=== PATIENT | male | born 1980 | race Caucasian/White ===

== ENCOUNTER 2025-03-28 08:00 | Emergency (ER) | payer OTHER, SELFPAY ==
[2025-03-28] VITALS (9 sets, daily range): BP systolic 162–217; BP diastolic 108–150; PULSE 83–108; RESP 16–18; TEMP 36.7–36.9; O2SAT 96–99; BMI 40.4
--- NOTE | 2025-03-28 08:33 | XR_ITS ---
Examination: AP chest single view TECHNIQUE: AP portable upright chest single view Date and time: March 28, 2025 0902 hours INDICATIONS: Shortness of breath today FINDINGS: No significant cardiac enlargement No pneumonia or pulmonary edema. Intact osseous structures IMPRESSION: No active disease
[2025-03-28 09:03] LABS: Basophils % (Auto) 1 % (0-2.5); Eosinophils # (Auto) 0.2 Thou/mm3 (0.0-0.5); Eosinophils % (Auto) 4 % (0-10); Hematocrit 48.1 % (41.0-53.0); Hemoglobin 17.3 g/dL (13.5-16.0); Immature Granulocytes % (Auto) 0 % (0-0); Immature Granulocytes Auto 0.01 Thou/mm3 (0.00-0.00); Lymphocytes # (Auto) 1.7 Thou/mm3 (1.0-4.8); Lymphocytes % (Auto) 25 % (10-50); Mean Corpuscular Hemoglobin 30.2 pg (25.0-35.0); Mean Corpuscular Volume 84 fL (80-100); Monocytes # (Auto) 0.5 Thou/mm3 (0.0-0.8); Monocytes % (Auto) 7 % (0-12); Neutrophils # (Auto) 4.1 Thou/mm3 (1.8-7.7); Neutrophils % (Auto) 63 % (37-80); Nucleated Red Blood Cell % 0 /100 WBC (0); Platelet Count 313 Thou/mm3 (140-440); RDW Standard Deviation 38.1 fL (35.1-43.9); Red Blood Count 5.72 Miln/mm3 (4.50-5.90); White Blood Count 6.5 Thou/mm3 (3.8-10.6)
--- NOTE | 2025-03-28 09:03 | EDNOTE_ITS ---
<Statement entered by Madeline Rodriguez MD - 03/29/25 06:13> I, Madeline Rodriguez MD, have reviewed the history, exam, and assessment of the patient. I have evaluated the patient independently and agree with the plan of care documented by [ ]. All diagnostic studies were reviewed and discussed. I confirm the diagnosis as documented by the Resident. I was present during the Medical Decision Making for this patient. The patient's plan of care was created between myself and the Resident and consistent with our discussion of the patient's case. ED General RME/HPI General Chief complaint: Recheck/Abnormal Lab/Rx Stated complaint: [facility] SENT FOR BP 190/141, PULSE 115; Time Seen by Provider: 03/28/25 08:28 Arrival date/time: 03/28/25 08:00 RME / HPI RME / HPI narrative: The patient is a 45-year-old male with significant past medical history of hypertension, prediabetes, morbid obesity and sleep apnea presented to ED after being sent by his PCP for high blood pressure. The patient reported that yesterday he has had some SOB, that improved on its own. He has not taken antihypertensive medications for past 2 years. He has been noncompliant to CPAP. He denied any headache, lightheadedness, blurry vision, sore throat, chest pain, SOB, abdominal pain, any changes in bowel or bladder habit, or leg swelling. He also denied any nausea or vomiting, fever or chills. Related Data Previous Rx's ?Medication ?Instructions ?Recorded atorvastatin 20 mg tablet 20 mg PO QPM #30 tabs lisinopril 20 1 tab PO QDAY #30 tabs 03/28 mg-hydrochlorothiazide 25 mg tablet metformin 1,000 mg tablet,extended 1,000 mg PO QDAY #3 0 tabs 03/28/25 release 24hr (osmotic) Allergies Allergy/AdvReac Type Severity Reaction Status Date / Time No Known Allergies Allergy Verified 03/28/25 08:06 Review of Systems Review of Systems Systems Reviewed: All systems reviewed, normal except as documented (Above) Past Medical History Family History OTHER FAMILY HX: Hypertension in mother Social History SOCIAL: Denies smoking, currently vaping, occasional drinker, denies any re creational substance use. ED Exam Narrative Physical exam: General: Obese, cooperative gentleman, no acute distress, Alert and Oriented x 3 HEENT: Moist mucous membranes, oropharynx clear Neck: Supple, No masses, No JVD CVS: Tachycardic, No murmurs, rubs or gallops Lungs: Clear to auscultation with no accessory use, no wheeze no rhonchi Abd: Soft, NT/ND, +BS, no organomegaly Ext: No edema, warm and well perfused Skin: No rash Psych: Appropriate mood and affect Course Quality Measures none Orders Category Date Time Status Register Of Wills NOW Care 03/28/25 08:38 Active Insert IV NOW Care 03/28/25 08:43 Completed XR chest 1V portable Stat Exams 03/28/25 08:33 Completed A1C [Glycohemoglobin w (eAG)] Stat Lab 03/28/25 08:35 Completed CBC [CBC] Stat Lab 03/28/25 08:35 Completed CMP [Comprehensive Metabolic Panel] Stat Lab 03/28/25 08:35 Completed Drug Screen,Urine Stat Lab 03/28/25 08:53 Completed Lipid Panel Stat Lab 03/28/25 08:35 Completed Magnesium Stat Lab 03/28/25 08:35 Completed Phosphorous Stat Lab 03/28/25 08:35 Completed Thyroid Stimulating Hormone Stat Lab 03/28/25 08:35 Completed Troponin I Stat Lab 03/28/25 08:35 Completed UA [Urinalysis] Stat Lab 03/28/25 08:53 Completed Labetalol IV [Trandate IV] Med 03/28/25 08:56 Discontinued 10 mg IVP X1 ONE Labetalol IV [Trandate IV] Med 03/28/25 10:12 Discontinued 10 mg IVP X1 ONE Lisinopril [Prinivil] Med 03/28/25 11:08 Discontinued 20 mg PO X1 ONE Magnesium Sulfate 2 GM Ivpb [Magnesium Sulfate Ivpb] Med 03/28/25 10:14 Discon tinued 2 gm in 50 ml IV X1 amLODIPine BESYLATE [Norvasc] Med 03/28/25 11:08 Discontinued 10 mg PO X1 ONE Vital Signs Vital signs: Vital Signs Temperature 98.0 F 03/28/25 08:09 Pulse Rate 108 H 03/28/25 08:09 Respiratory Rate 18 03/28/25 08:09 Blood Pressure 217/150 H 03/28/25 08:09 Pulse Oximetry (%) 98 03/28/25 08:09 Oxygen Delivery Method Room Air 03/28/25 08:09 Discharge Plan Plan Patient Disposition: HOME (Self Care) Prescriptions/Referrals Prescriptions/Med Rec: New lisinopril-hydrochlorothiazide 20-25 mg tablet 1 tab PO QDAY Qty: 30 0RF metformin 1,000 mg tablet extended release 24hr 1,000 mg PO QDAY Qty: 30 0RF atorvastatin 20 mg tablet 20 mg PO QPM Qty: 30 0RF Referrals: No Primary/Family,Physician [Primary Care Provider] - In 1 week Problem List Clinical Impression: Hypertensive urgency, Asymptomatic proteinuria, Uncontrolled type 2 diabetes mellitus Patient/Caregiver Discharge Instructions Discharge Activity: activity as tolerated Education Materials: Controlling High Blood Pressure Additional Instructions: You have been discharged on following recommendations by Dr. Escalona: Please follow-up with your PCP within 1-2 weeks of discharge, and get your renal panel done. You have been started on: -Lisinopril-hydrochlorothiazide 20-25 Mg daily - Metformin thousand Mg ER daily -Atorvastatin 20 Mg daily at night -Recommended to adhere to medications; and daily blood pressure and blood sugar monitoring with maintenance of a log. -Recommended to return back to emergency department if your symptoms persists or worsens Print Language: Syrian Stand Alone Forms: [employer] Award Info., Patient Portal Info Letter MDM Narrative MDM hospital course: The patient is a 45-year-old male with significant past medical history of hypertension, prediabetes, morbid obesity and sleep apnea presented to ED after being sent by his PCP for high blood pressure. The patient reported that yesterday he has had some SOB, that improved on its own. He has not taken antihypertensive medications for past 2 years. He has been noncompliant to CPAP. He denied any headache, lightheadedness, blurry vision, sore throat, chest pain, SOB, abdominal pain, any changes in bowel or bladder habit, or leg swelling. He also denied any nausea or vomiting, fever or chills. His initial vitals were BP 217/150, pulse 108, RR 18, saturating 98% on room air. Labs revealed hemoglobin of 17.3, CMP revealed blood sugar 240, A1c 9.6, magnesium 1.5, triglyceride 165, cholesterol 245, LDL 166 and TSH 1.70. UA revealed urine protein 2+ glucose 1+, but was negative for UTI, U-Tox negative, chest x-ray revealed no significant cardiac enlargement or any active disease. EKG revealed sinus tachycardia. The patient was given labetalol 10 mg IV x 2, and magnesium sulfate 2 g IV x 1, later amlodipine 10 mg followed by lisinopril 20 mg x 1. About after 4 hours his blood pressure was slowly lowered down to 162/108. The patient was planned to discharge home. The patient's management plan was discussed with my attending physician MD Rasheed Hendrickson MD, PGY2 Lab Interpretation Lab(s) interpretation(s): See above Medication Administration(s) Medication Administration History Discontinued Medications Amlodipine Besylate (Amlodipine Besylate 5 Mg Tablet) 10 mg PO X1 ONE Stop: 03/28/25 11:09 Last Admin: 03/28/25 11:18 Dose: 10 mg Documented By: CHINYERE Magnesium Sulfate (Magnesium Sulfate Ivpb) 2 gm in 50 mls @ 25 mls/hr IV X1 ONE Stop: 03/28/25 12:13 Last Infusion: 03/28/25 12:13 Dose: Infused Documented By: Admin: 03/28/25 10:27 Dose: 25 mls/hr Documented By: SHAHZAD Labetalol HCl (Labetalol Inj 5 Mg/Ml Vial 20 Ml) 10 mg IVP X1 ONE Stop: 03/28/25 08:57 Last Admin: 03/28/25 09:09 Dose: 10 mg Documented By: SHAHZAD Labetalol HCl (Labetalol Inj 5 Mg/Ml Vial 20 Ml) 10 mg IVP X1 ONE Stop: 03/28/25 10:13 Last Admin: 03/28/25 10:26 Dose: 10 mg Documented By: SHAHZAD Lisinopril (Lisinopril 20 Mg Tablet) 20 mg PO X1 ONE Stop: 03/28/25 11:09 Last Admin: 03/28/25 11:17 Dose: 20 mg Documented By: CHINYERE Diagnosis Differential diagnosis: Hypertensive urgency, hypertensive emergency Most likely dx, and/or detailed dx discussion: Hypertensive urgency Dispositon Disposition: Discharge Home
[2025-03-28] MEDS: LABETALOL INJ 5 MG/ML VIAL 20 ML 10 MG IVP ×2 (09:09→10:26)
[2025-03-28 09:25] LABS: Collection Type, Urine Clean Catch
[2025-03-28 09:26] LABS: Glucose Estimated Average 229 mg/dL (80-131); Hemoglobin A1C 9.6 % Hgb (4.8-6.0)
[2025-03-28 09:33] LABS: Bilirubin,Urine Negative (Negative); Blood,Urine Trace (Negative); Clarity,Urine Clear (Clear/Hazy); Color,Urine Lt-Yellow (Lt Yel-Yel); Glucose, Urine 1+ (Negative); Hyaline Casts,Urine < 1 /hpf (0-1); Ketones,Urine Negative (Negative); Leukocyte Esterase,Urine Negative (Negative); Nitrite,Urine Negative (Negative); Protein,Urine 2+ (Neg - Trace); RBC,Urine < 1 /hpf (0-3); Specific Gravity,Urine 1.018 (1.001-1.035); Squamous Epithelial Cell,Urine < 1 /hpf (0-5); Urobilinogen,Urine Negative mg/dL (0.0-1.0); WBC,Urine 1 /hpf (0-5)
[2025-03-28 09:40] LABS: Alanine Aminotransferase 40 U/L (10-49); Albumin, Serum 4.2 gm/dL (3.5-5.0); Albumin/Globulin Ratio 1.4 (1.2-2.2); Alkaline Phosphatase 96 U/L (46-116); Anion Gap 11 (7-16); Aspartate Amino Transferase 26 U/L (0-34); BUN/Creatinine Ratio 10 Ratio (12-20); Bilirubin,Total 0.7 mg/dL (0.3-1.2); Blood Urea Nitrogen 10 mg/dL (9-23); Calcium 9.1 mg/dL (8.3-10.6); Calcium (Corrected) 9.1 mg/dL (8.5-10.1); Carbon Dioxide 22.6 mMol/L (20.0-31.0); Cardiac Risk Estimate 5.3 RATIO (4.0-6.7); Chloride 103 mMol/L (98-107); Cholesterol 245 mg/dL (132-200); Estimated Creatinine Clearance 117.9 mL/min (>60); Globulin 2.9 gm/dL (2.3-3.5); Glucose 240 mg/dL (74-106); HDL Cholesterol 46 mg/dL (40-60); LDL Cholesterol,Calculated 166 mg/dL (0-130); Magnesium 1.5 mg/dL (1.6-2.6); Osmolality,Calculated 280 (275-295); Phosphorous 3.2 mg/dL (2.4-5.1); Potassium 3.8 mMol/L (3.4-5.1); Sodium 137 mMol/L (136-145); Total Protein 7.1 gm/dL (5.7-8.2); Triglycerides 165 mg/dL (30-150); eGFR > 60 See Note
[2025-03-28 10:21] LABS: Amphetamine/Methamp Scrn,U Negative (Negative); Barbiturate Screen,Urine Negative (Negative); Benzodiazepines Screen,Urine Negative (Negative); Benzoylecgonine Screen, Ur Negative (Negative); Fentanyl Screen,Urine Negative (Negative); Opiate Screen,Urine Negative (Negative); THC Screen,Urine Negative (Negative)
[2025-03-28] MEDS: Magnesium Sulfate 2 GM Ivpb 2 GM/50 ML BAG IV (10:27)
[2025-03-28] MEDS: Lisinopril 20 MG TABLET PO (11:17)
[2025-03-28] MEDS: amLODIPine BESYLATE 5 MG TABLET 10 MG PO (11:18)
== END 2025-03-28 12:59 | disposition home or self-care (01) ==
PROVIDERS: Student in an Organized Health Care Education/Training Program; Emergency Provider Emergency Medicine
DX: I16.0 Hypertensive urgency (principal); R80.9 Proteinuria, unspecified; E11.65 Type 2 diabetes mellitus with hyperglycemia; R06.02 Shortness of breath; T46.4X6A Underdosing of angiotensin-converting-enzyme inhibitors, initial encounter; Z91.128 Patient's intentional underdosing of medication regimen for other reason; I10 Essential (primary) hypertension; E66.01 Morbid (severe) obesity due to excess calories; G47.30 Sleep apnea, unspecified; Z99.81 Dependence on supplemental oxygen; Z68.41 Body mass index [BMI] 40.0-44.9, adult
CPT/HCPCS: 36415; 71045; 80053; 80061; 80307; 81001; 83036; 83735; 84100; 84443; 84484; 85025; 96365; 96366; 99284; J3475; J3490; A9270; J1920